=== PATIENT | female | born 1955 | race Two or more races ===

== ENCOUNTER 2024-04-05 10:26 | Emergency (ER) | payer MEDICARE, MEDICAID ==
[~2024-04-05] VITALS: Ht 170.2 cm; Wt 81.8 kg
[2024-04-05 10:29] VITALS: BP 153/95; PULSE 98; RESP 18; TEMP 98; O2SAT 98
[2024-04-05] MEDS ORDERED: OXYC10TA92 PO (10:37)
[2024-04-05] MEDS ORDERED: ADAL40PE5 SQ (10:37)
[2024-04-05] MEDS ORDERED: LOSA-381 PO (10:37)
[2024-04-05] MEDS ORDERED: GABA-1216 PO (10:37)
[2024-04-05] MEDS ORDERED: BACL10TA PO (10:37)
[2024-04-05] MEDS ORDERED: OXYC20TA58 PO (12:35)
[2024-04-05] MEDS ORDERED: OXYC20TA41 PO (14:42)
== END 2024-04-05 12:52 | disposition home or self-care (01) ==
LOC: EMS 10:26
DX: G89.29 Other chronic pain (principal); Z76.0 Encounter for issue of repeat prescription; I10 Essential (primary) hypertension; Z88.0 Allergy status to penicillin; Z88.6 Allergy status to analgesic agent; Z90.710 Acquired absence of both cervix and uterus; Z79.899 Other long term (current) drug therapy
CPT/HCPCS: 99281; Z7502